=== PATIENT | male | born 1995 | race Two or more races ===

== ENCOUNTER 2018-08-09 01:38 | Emergency (ER) | payer MEDICAID ==
--- NOTE | 2018-08-09 01:42 | EDPHY ---
H & P Time Seen by Provider: 08/09/18 01:42 HPI/ROS: Chief Complaint: Alcohol intoxication, vomiting HPI: 22-year-old male who was found outside of a gas station intoxicated. Patient passed out after vomiting. Is unable to ambulate on their own. Patient brought in by EMS for further evaluation. No obvious signs of trauma per EMS. Remainder of history is unobtainable secondary to the patient's intoxication. Per bystanders patient states he has been drinking rum and whiskey tonight. ROS: 10 systems were reviewed and were negative except those elements noted in the HPI. PMH: Denies Medications: Denies Social History: Positive for alcohol Family History: non-contributory Physical Exam: Gen: Somnolent, responds to painful stimuli, maintaining airway, smells of alcohol and emesis HEENT: Atraumatic Nose: no epistaxis or deformity Eyes: PERRLA, EOMI Mouth: Moist mucosa Neck: Supple, no step-offs or deformity Chest: Atraumatic, lungs clear to auscultation Heart: S1, S2 normal, no murmur Abd: Soft, non-tender, no guarding Back: Atraumatic Ext: no edema, atraumatic Skin: no rash Neuro: Sensation grossly intact, Strength 5/5 in bilateral upper and lower extremities (Kendell Silver) Constitutional: Initial Vital Signs Temperature (C) 36.3 C 08/09/18 01:46 Heart Rate 91 08/09/18 01:46 Respiratory Rate 16 08/09/18 01:46 Blood Pressure 124/95 H 08/09/18 01:46 O2 Sat (%) 95 08/09/18 01:46 O2 Delivery Mode Room Air O2 (L/minute) 2 Allergies/Adverse Reactions: Unable to Assess Allergy (Unverified 08/09/18 01:45) Home Medications: Medication Instructions Recorded Unobtainable 08/09/18 Medical Decision Making ED Course/Re-evaluation: Patient signed out to Dr. White pending improvement in mental status, ability to ambulate and no further vomiting secondary to their alcohol consumption. ( Kendell Silver) 6:25 a.m.- Patient is still quite sedate, not able to ambulate just yet. He is here with a sober friend who can take him home when he is able. (Melvi White) Departure - Departure Disposition: Home, Routine, Self-Care Clinical Impression: Alcoholic intoxication Condition: Good Instructions: Alcohol Intoxication (ED) Referrals: Patient,NotPresent [Primary Care Provider] - As per Instructions
[2018-08-09] MEDS ORDERED: ONDANSETRON 4 MG/2 ML VIAL ONE (02:21)
[2018-08-09 07:41] VITALS: BP 131/80
== END 2018-08-09 07:40 | disposition home or self-care (01) ==
DX: F10.920 Alcohol use, unspecified with intoxication, uncomplicated (principal)
CPT/HCPCS: J2405